=== PATIENT | male | born 1955 | race Two or more races ===

== ENCOUNTER 2021-03-30 10:30 | Outpatient (CLI) | payer OTHER | END 2021-03-30 10:35 | disposition home or self-care (01) | LOC: PPH VACUNA 10:30 | PROVIDERS: ATTEND Emergency Medicine Pediatric Emergency Medicine | DX: Z23 Encounter for immunization (principal) ==

== ENCOUNTER 2021-09-28 08:00 | Outpatient (CLI) | payer OTHER | END 2021-09-28 08:30 | disposition home or self-care (01) | LOC: PPH VACUNA 08:00 | PROVIDERS: ATTEND Emergency Medicine Pediatric Emergency Medicine | DX: Z23 Encounter for immunization (principal) ==

== ENCOUNTER 2023-02-23 20:15 | Emergency (ER) | payer OTHER ==
[~2023-02-23] VITALS: Ht 152.4 cm; Wt 79.4 kg
[2023-02-23] MEDS ORDERED: LOSARTAN POTASS50 MG PO (21:31)
[2023-02-23] MEDS ORDERED: TAMSULOSIN HCL0.4 MG PO (21:31)
[2023-02-23] MEDS ORDERED: AMLODIPINE BESYL5 MG PO (21:31)
[2023-02-23] MEDS ORDERED: OMEPRAZOLE20 MG PO (21:31)
[2023-02-23] MEDS ORDERED: FINASTERIDE5 MG PO (21:31)
[2023-02-23] MEDS ORDERED: ATORVASTATIN CA20 MG PO (21:31)
[2023-02-24] MEDS ORDERED: CEPHALEXIN500 MG PO (02:28)
== END 2023-02-24 02:30 ==
LOC: ER 20:15
DX: S81.821A Laceration with foreign body, right lower leg, initial encounter (principal); W25.XXXA Contact with sharp glass, initial encounter; Y93.89 Activity, other specified; Y92.511 Restaurant or cafe as the place of occurrence of the external cause